=== PATIENT | female | born 1960 | race Caucasian/White ===

== ENCOUNTER 2022-12-08 09:26 | Emergency (ER) | payer OTHER ==
[2022-12-08 09:44] VITALS: BP 121/77
--- NOTE | 2022-12-08 09:51 | ED Physician Documentation ---
PD HPI HEENT - Stated complaint Stated Complaint: EAR PX/ HEARING LOSS - Chief complaint Chief Complaint: Heent - History obtained from History obtained from: Patient - Additional information Additional information: 62-year-old female presents for earwax impaction. Tried [id number] treatments without relief. Can a longer hear out of her left ear. Review of Systems Constitutional: denies: Fever, Chills Ears: reports: Loss of hearing, Ear pain. denies: Drainage/discharge, Tinnitus/ringing, Foreign body PD PAST MEDICAL HISTORY - Present Medications Home Medications: Ambulatory Orders Medication Instructions Recorded Confirmed EPINEPHrine ABBOJECT [Epinephrine 1 mg IM PRN PRN 12/08/22 12/08/22 HCL] Estrogen,Con/M-Progest Acet 1 tab ORAL DAILY 12/08/22 12/08/22 [Premphase 0.625-5 mg Tablet] Levothyroxine Sodium [Synthroid] 125 mcg ORAL DAILY 12/08/22 12/08/22 Ofloxacin [Ofloxacin Otic drops] 10 drops OT DAILY #5 ml 12/08/22 - Allergies Allergies/Adverse Reactions: Allergies Allergy/AdvReac Type Severity Reaction Status Date / Time Cephalosporins Allergy Anaphylaxis Verified 12/08/22 09:42 Penicillins Allergy Anaphylaxis Verified 12/08/22 09:42 PD ED PE NORMAL - Vitals Vital signs reviewed: Yes - General General: Alert and oriented X 3, No acute distress, Well developed/nourished - HEENT HEENT: Atraumatic, PERRL, EOMI, Other (R ear normal. L ear with cerumen impaction. Scratches along L auditory canal) - Respiratory Respiratory: No respiratory distress - Abdomen Abdomen: Soft, Non distended - Derm Derm: Normal color, Warm and dry, No rash - Extremities Extremities: No deformity, No tenderness to palpate, Normal ROM s pain - Neuro Neuro: Alert and oriented X 3, paperhanger apprentice 2-12 intact, No motor deficit, No sensory deficit, Normal speech Results - Vitals Vitals: Vital Signs - 24 hr 12/08/22 09:38 Temperature 36.4 C L Heart Rate 72 Respiratory 16 Rate Blood Pressure 121/77 O2 Saturation 97 Oxygen O2 Source Room air PD Medical Decision Making - ED course ED course: Left cerumen impaction. Irrigated with NS and wax removed. TM intact post- procedure. Will DC wtih antibiotic drops due to patient's self-imposed canal trauma Departure - Departure Disposition: Home, Self Care Clinical Impression: Impacted ear wax Condition: Stable Instructions: Earwax Impacted Prescriptions: Ofloxacin [Ofloxacin Otic drops] 10 drops OT DAILY #5 ml Forms: PCP List Discharge Date/Time: 12/08/22 10:20
== END 2022-12-08 10:20 | disposition home or self-care (01) ==
LOC: ED 09:26
DX: H61.22 Impacted cerumen, left ear (principal); Z79.899 Other long term (current) drug therapy
CPT/HCPCS: 69209; 99283

== ENCOUNTER 2023-09-10 09:37 | Outpatient (CLI) | payer OTHER ==
--- NOTE | 2023-09-13 08:09 | Mammography Report ---
BILATERAL DIGITAL SCREENING MAMMOGRAM 3D/2D: 09/10/2023 CLINICAL: Routine screening. Comparison is made to exams dated: 09/18/2021 mammogram, 12/03/2017 mammogram, and 11/08/2013 [facility] Both breasts are heterogeneously dense, which may obscure small masses (category c / 51-75% glandular tissue). There is a focal asymmetry in the left breast at 1 o'clock middle depth. There also is an asymmetry in the left breast middle depth central to the nipple seen on the mediolat eral oblique view only. No other significant masses, calcifications, or other findings are seen in either breast. IMPRESSION: INCOMPLETE: NEEDS ADDITIONAL IMAGING EVALUATION The focal asymmetry in the left breast at 1 o'clock middle depth is indeterminate. Additional views with possible ultrasound are recommended. The asymmetry in the left breast middle depth central to the nipple seen on the mediolateral oblique view only is indeterminate. Additional views with possible ultrasound are recommended. Based on the Tyrer Cuzick model (a risk assessment model) the patient's lifetime risk is 11.4% and he r 10 year risk is 4.8%. According to the ACR, ACS, and NCCN guidelines, an annual breast MRI exam dmitry ng with mammogram is recommended if the patient's lifetime risk is 20% or greater. This exam was interpreted at Station ID: [id number]. NOTE: For mammograms, a report in lay terms will be sent to the patient. Approximately 15% of breast malignancies will not be visualized mammographically. In the management of a palpable breast mass, a negative mammogram must not discourage biopsy of a clinically suspicious lesion. Electronically Signed By: Angie peters/:09/10/2023 12:57:23 ACR BI-RADS Category 0: Incomplete 3340F PARENCHYMAL PATTERN: (D) - The breast(s) demonstrate(s) heterogeneously dense fibroglandular parbay justa. BI-RADS CATEGORY: (0) - 0 Mammo and [place] [id number] Immediate follow-up LATERALITY: (B)
== END 2023-09-10 09:38 | disposition home or self-care (01) ==
LOC: DI 09:37
PROVIDERS: ATTEND Family Medicine
DX: Z12.31 Encounter for screening mammogram for malignant neoplasm of breast (principal); R92.8 Other abnormal and inconclusive findings on diagnostic imaging of breast; R92.333 Mammographic heterogeneous density, bilateral breasts

== ENCOUNTER 2023-10-20 08:05 | Outpatient (CLI) | payer OTHER ==
--- NOTE | 2023-10-20 10:28 | Mammography Report ---
UNILATERAL LEFT DIGITAL DIAGNOSTIC MAMMOGRAM 3D/2D WITH SPOT COMPRESSION: 10/20/2023 CLINICAL: Patient returns today to evaluate a focal asymmetry in the left breast. Comparison is made to exams dated: 09/10/2023 mammogram - [facility], 09/18/2021 mamm ogram, and 12/03/2017 mammogram - [facility]. The left breast is heterogeneously dense, which may obscure small masses (category c / 51-75% glandul ar tissue). There is a focal asymmetry in the left breast at 1 o'clock middle depth. There also is an asymmetry in the left breast middle depth central to the nipple seen on the mediolat eral oblique view only. No other significant masses or calcifications are seen in the breast. IMPRESSION: INCOMPLETE: NEEDS ADDITIONAL IMAGING EVALUATION The focal asymmetry in the left breast at 1 o'clock middle depth is indeterminate. An ultrasound is recommended. The asymmetry in the left breast middle depth central to the nipple seen on the mediolateral oblique view only is indeterminate. An ultrasound is recommended. Based on the Tyrer Cuzick model (a risk assessment model) the patient's lifetime risk is 11.4% and he r 10 year risk is 4.8%. According to the ACR, ACS, and NCCN guidelines, an annual breast MRI exam dmitry ng with mammogram is recommended if the patient's lifetime risk is 20% or greater. This exam was interpreted at Station ID: [id number]. NOTE: For mammograms, a report in lay terms will be sent to the patient. Approximately 15% of breast malignancies will not be visualized mammographically. In the management of a palpable breast mass, a negative mammogram must not discourage biopsy of a clinically suspicious lesion. Electronically Signed By: Bill Bright M.D. lc/:10/20/2023 08:59:57 ACR BI-RADS Category 0: Incomplete 3340F PARENCHYMAL PATTERN: (D) - The breast(s) demonstrate(s) heterogeneously dense fibroglandular parbay justa. BI-RADS CATEGORY: (0) - 0 Ultrasound [id number] Immediate follow-up LATERALITY: (B)
--- NOTE | 2023-10-20 10:29 | Ultrasound Report ---
LIMITED ULTRASOUND OF LEFT BREAST: 10/20/2023 CLINICAL: Patient returns today to evaluate a focal asymmetry in the left breast. Comparison is made to exams dated: 10/20/2023 mammogram, 09/10/2023 mammogram - [facility], 09/18/2021 mammogram, 12/03/2017 mammogram, and 11/08/2013 mammogram - [facility]. Ultrasound of the left breast upper outer quadrant was performed. Olmedo scale images of the real-dave e examination were reviewed. No significant abnormalities were seen sonographically in the left breast in the upper outer quadrant . IMPRESSION: INCOMPLETE: NEEDS ADDITIONAL IMAGING EVALUATION Ultrasound evaluation of the retroareolar abnormality (L MLO asymmetry on screening mammography) is r ecommended and currently pending. There is no abnormality seen in the left breast to correspond with the mammography finding in the upp er outer quadrant (focal asymmetry from screening mammogram), probably benign. 6month followup mammog katherine and possible ultrasound recommended in 6months for this finding. This exam was interpreted at Station ID: [id number]. Electronically Signed By: Bill Bright M.D. lc/:10/20/2023 09:39:45 Ultrasound BI-RADS: 0 Indeterminate BI-RADS CATEGORY: (0) - 0 Ultrasound [id number] Immediate follow-up LATERALITY: (B)
== END 2023-10-20 08:06 | disposition home or self-care (01) ==
LOC: DI 08:05
PROVIDERS: ATTEND Family Medicine
DX: R92.8 Other abnormal and inconclusive findings on diagnostic imaging of breast (principal); R92.332 Mammographic heterogeneous density, left breast